=== PATIENT | female | born 1980 | race Caucasian/White ===

== ENCOUNTER 2021-04-30 11:38 | Outpatient (REF) | payer OTHER, SELFPAY | END 2021-04-30 11:39 | disposition home or self-care (01) | LOC: HO.HMGCLDS 11:38 | PROVIDERS: Visit Provider Internal Medicine | DX: Z20.822 Contact with and (suspected) exposure to COVID-19 (principal) | CPT/HCPCS: C9803; U0003; U0005 ==

== ENCOUNTER 2022-04-23 10:17 | Outpatient (REF) | payer OTHER, SELFPAY ==
[2022-04-23 10:57] LABS: COVID-19 Test Negative (Negative)
== END 2022-04-23 10:18 | disposition home or self-care (01) ==
LOC: HO.LAB 10:17
PROVIDERS: Visit Provider Internal Medicine
DX: Z20.822 Contact with and (suspected) exposure to COVID-19 (principal)
CPT/HCPCS: 87635; C9803

== ENCOUNTER 2025-05-25 06:32 | Emergency (ER) | payer OTHER, SELFPAY ==
--- NOTE | ~2025-05-25 | CT_ITS ---
EXAMINATION: CT ABDOMEN AND PELVIS WITHOUT CONTRAST CLINICAL INFORMATION: Right flank pain. COMPARISON: None available. TECHNIQUE: Multidetector volumetric imaging was performed from the superior aspect of the liver through the pubic symphysis. Sagittal and coronal reformatted images were obtained on the technologist's workstation. This CT examination was performed using dose optimization techniques as appropriate, variously including the following: *Automated exposure control *Adjustment of mA and/or kV according to patient size (this includes techniques or standardized protocols for targeted exams where dose is matched to indication/reason for exam; i.e. extremities or head) *Use of iterative reconstruction technique DLP: Final 168 mGy-cm FINDINGS: Inadequate evaluation of the intra-abdominal solid organs and vascular structures due to lack of IV contrast. LUNG BASES: No acute airspace disease or gross pulmonary nodules. LIVER, GALLBLADDER, AND BILIARY TREE: Liver measures 17 cm. Gallbladder is contracted. No pericholecystic fluid collection or gallbladder wall thickening. No intrahepatic or extrahepatic ductal dilatation. PANCREAS: No peripancreatic fluid collections. SPLEEN: 7 cm. ADRENAL GLANDS: No nodular lesions. KIDNEYS AND URETERS: Right kidney: Moderate dilatation of the pelvicalyceal system and the ureter secondary to a cluster of 2.5 mm calculi in the distal right ureter near the vesicoureteral junction. Left kidney: Multiple, less than 2 mm calculi throughout the pelvicalyceal system. No hydronephrosis. No dilatation of the left ureter. BLADDER: Collapsed. GASTROINTESTINAL TRACT: Appendix is normal. Abundant stool throughout the large intestine. Collapsed left hemicolon. No intestinal obstruction pattern. No pneumatosis intestinalis. No ascites. No pneumoperitoneum. ABDOMINAL WALL: Diastases abdominal rectus muscles with protrusion of the intra-abdominal contents. Small fat-containing umbilical hernias. LYMPH NODES: Prominent, nonspecific less than 11 mm mesenteric and retroperitoneal lymph nodes. VASCULAR: No aneurysm, abdominal aorta. No gross calcified plaques. PELVIC VISCERA: Inadequate evaluation. OSSEOUS STRUCTURES: Multilevel thoracolumbar spondylosis without acute fracture or listhesis, mild. No acute fracture in the bony pelvis. No acute fracture or dislocation coxofemoral joints. Bone marrow inhomogeneity in the bony pelvis. CT/CT abdomen pelvis wo IV con IMPRESSION: 2.5 mm cluster of the collecting calculus distal right ureter causing moderate hydroureteronephrosis. Nonobstructing nephrolithiasis, left kidney. Diastases abdominal rectus muscles and small fat-containing umbilical hernia. Concerning calcium metabolic disorders and or osteopenia/ osteoporosis. Fleischner guidelines were followed. Electronically signed by: Fernando Phipps MD 05/25/2025 08:34 AM [facility] DONALDSON
[2025-05-25 06:43] VITALS: BP 126/53; PULSE 69; RESP 20; TEMP 36.5; O2SAT 99; BMI 28.3
--- NOTE | 2025-05-25 06:55 | ED_ITS ---
HPI - Female Genitourinary General Chief complaint: Urogenital-Female Stated complaint: Kidney Stone? Time Seen by Provider: 05/25/25 06:55 Source: patient, RN notes reviewed and old records reviewed Mode of arrival: ambulatory Limitations: no limitations History of Present Illness ED Provider: Lauren HPI Narrative: Patient is a 44 year old female presenting to the emergency department with complaint of 3 weeks of right flank pain, urinary urgency, frequency, oliguria. Has been seen at urgent care, UA reportedly negative. Was referred to [facility] urology, had outpatient renal ultrasound. States this morning pain worsened, had nausea without vomiting. Unsure of hematuria currently, as she just started her menstrual period. MD elicited complaint: dysuria and flank pain Related Data Previous Rx's ?Medication ?Instructions ?Recorded cefuroxime axetil 250 mg tablet 250 mg PO BID #14 tabs 05/25/25 morphine 15 mg immediate release 15 mg PO Q8H PRN maryellen re pain 05/25/25 tablet (scale score 7-10) #6 tabs ondansetron 4 mg disintegrating 4 mg PO Q8H PRN nausea and 05/25/25 tablet vomiting #10 tabs prednisone 20 mg tablet 20 mg PO DAILY #7 tabs 05/25 tamsulosin 0.4 mg capsule 0.4 mg PO DAILY #14 caps 05/09 Allergies Allergy/AdvReac Type Severity Reaction Status Date / Time Sulfa (Sulfonamide Allergy Unknown RASH/NAUSEA Verified 05/25/25 06:45 Antibiotics) (SULFA (SULFONAMIDE ANTIBIOTICS)) Review of Systems 2 Review of Systems: As per HPI Yes all other systems are reviewed and are negative Constitutional: Constitutional: Reports as per HPI [facility] Social History Social History Alcohol intake: current Alcohol intake frequency: holidays/special occasions only Alcohol type: wine Smoked in Last 30 Days: No Use of substances other than those prescribed or required for medical reasons: Yes Substance Use Type: Marijuana Advance Directives: No Advance Directives Information Provided: No Patient : No Physical Exam 2 Vital Signs: Vital Signs: Last Vital Signs Temp 98.1 F 05/25/25 08:58 Pulse 75 05/25/25 08:58 Resp 20 05/25/25 08:58 BP 126/75 05/25/25 08:58 Pulse Ox 98 05/25/25 08:58 O2 Del Method Room Air 05/25/25 08:58 BMI result Body Mass Index 28.3 Vital signs have been reviewed and appear to be correct. Blood pressure normal. Heart rate normal. Respiratory rate normal. Temperature normal. Oxygen saturation normal. Const: General: cooperative, healthy appearing and no acute distress O rientation/consciousness: oriented to person, oriented to place, oriented to time and patient oriented x3 Limitations: no limitations HEENT: Head: Yes normocephalic and Yes atraumatic Ears: external ears normal General nose exam: Normal external nose present Face and sinus: Yes face symmetric Mouth: oropharynx normal and moist mucous membranes Throat: Yes uvula midline Eyes: Pupils: Equal, round and reactive pupils present Neck: Neck: Yes normal visual inspection and Yes supple Resp: Effort & Inspection: normal respiratory effort and able to speak in complete sentences Auscultation: clear to auscultation bilaterally Cardio: Rate: regular rate Rhythm: regular rhythm Heart sounds: S1 normal heart sound present and S2 normal heart sound present GI: Palpation (GI): Soft to palpation and nontender Auscultation: n ormoactive bowel sounds : General: Yes no CVA tenderness Back/Spine/Pelvis: Back: no CVA tenderness Skin: General skin exam: elasticity normal and turgor normal Neuro: General: oriented to person, oriented to place, oriented to time, patient oriented x3, moves all extremities, no focal motor deficits and CN's II- XI intact bilaterally Cranial nerves: Yes Equal, round and reactive pupils present Cognition (Neuro): normal cognition Extrem: General: Yes full ROM, Yes no pedal edema and Yes no calf tenderness Psych: Mental Status: mental status grossly normal Affect: normal affect Thought process: Normal thought process present Medications Administered Discontinued Medications Generic Name Dose Route Start Last Admin Trade Name Freq PRN Reason Stop Dose Admin Lactated Ringer's 1,000 mls @ 999 mls/hr 05/25/25 07:15 05/25/25 09:09 Lr IV 05/25/25 08:15 Infused .Q1H1M VERONICA Infusion Ketorolac Tromethamine 15 mg 05/25/25 07:17 05/25/25 07:54 Ketorolac Tromethamine 15 Mg/Ml Vial IVPUSH 05/25/25 07:18 15 mg ONCE ONE Administration Ondansetron HCl 4 mg 05/25/25 07:09 05/25/25 07:54 Ondansetron Hcl 4 Mg/2 Ml Vial IVPUSH 05/25/25 07:10 4 mg ONCE ONE Administration Medical Decision Making Medical Decision Making [facility] Narrative: Patient is a 44 year old female presenting to the emergency department with complaint of 3 weeks of right flank pain, urinary urgency, frequency, oliguria. On exam patient is awake, A+Ox3, VS WNL, afebrile, normal neurological exam without focal deficits, physical exam findings as above. Given reported symptoms and physical exam findings, initial differential includes but is not limited to UTI/pyelonephritis, obstructing renal calculi, renal colic, hydronephrosis, interstitial cystitis. Labs notable for slight leukcytosis, elevated Tbili. CT abdomen pelvis notable for 2.5 mm cluster of collecting calculus to distal right ureter with moderate hydroureteronephrosis. My interpretation is in agreement with the radiologist's interpretation. UA notable for 1+ leukocytes, 6-10 wbc's, 2+ bacteria, 3+ blood, 6-10 epithelials. Case discussed with urologist, Dr. Deluca, who recommends 1 dose of IV ceftriaxone in the ED prior to discharge, can be discharged home for outpatient management on tamsulosin, antibiotics. Will send prescription for prednisone, a few morphine for severe pain. Patient has a follow up appointment with the [facility] Urology this afternoon, advised patient to keep this appointment and bring her paperwork from today's visit with her. Return precautions discussed at bedside. Patient verbalized understanding of and agreement with plan. Differential Diagnosis Differential Diagnoses: The differential diagnosis associated with the presentation includes as per [facility] Admission/Observation Consideration of admission/observation: Escalation of care including admission/observation considered Patient would have been admitted to the hospital and transferred to appropriate facility had their clinical presentation warranted hospital admission. Consult Healthcare Provider Management of the patient was discussed with: Compressor Mechanic Bus (Dr. Deluca) Lab Data [facility] Lab Attestation statement: I reviewed the patient's lab results. as per [facility] 05/25/25 07:04 05/25/25 07:04 Labs: Lab Results 05/25/25 05/25/25 Range/Units 07:04 09:02 WBC 11.9 H (4.8-10.8) X10*3/uL RBC 4.69 (4.20-5.50) X10*6/uL Hgb 14.0 (12.0-16.0) g/dl Hct 40.8 (37.0-47.0) % MCV 87.0 (80.0-98.0) fL MCH 29.9 (27.0-33.0) pg MCHC 34.3 (31.0-35.0) g/dl RDW 11.9 (11.0-16.0) % Plt Count 341 (160-400) X10*3/uL MPV 9.6 (9.4-12.3) fL Immature Gran % (Auto) 0.3 (0.0-0.4) % Neut % (Auto) 82.5 H (45-73) % Lymph % (Auto) 11.9 L (20-40) % Elmore % (Auto) 3.8 (2-11) % Eos % (Auto) 0.8 (0-4) % Baso % (Auto) 0.7 (0-2) % Lymph # (Auto) 1.4 (1.2-4.9) X10*3/uL Elmore # (Auto) 0.5 (0.1-1.2) X10*3/uL Eos # (Auto) 0.1 (0.0-0.4) X10*3/uL Baso # (Auto) 0.1 (0.0-0.2) X10*3/uL Abs Immat Gran (auto) 0.03 (0.00-0.03) X10*3/uL Absolute Neuts (auto) 9.9 H (2.0-8.3) x10*3/uL Absolute Nucleated RBC 0.000 (0.0-0.012) X10*3/uL Nucleated RBC % (auto) 0.0 (0.0-0.2) /100WBC Sodium 141 (135-145) mmol/L Potassium 3.4 (3.3-5.1) mmol/L Chloride 105 (96-108) mmol/L Carbon Dioxide 28 (22-29) mmol/L Anion Gap 11 L (12-20) BUN 11 (9-16) mg/dL Creatinine 0.83 (0.5-1.4) mg/dL Estim Creat Clear Calc 87.0 Estimated GFR > 60 Random Glucose 136 H (60-115) mg/dL Calcium 9.1 (8.4-10.2) mg/dL Total Bilirubin 1.8 H (0.0-1.0) mg/dL AST 17 (5-31) U/L ALT 15 (0-31) U/L Alkaline Phosphatase 71 (39-117) U/L Total Protein 7.1 (6.5-8.0) g/dL Albumin 4.6 (3.5-5.0) g/dL Beta HCG, Quant < 2 mIU/mL Urine Color Yellow Urine Appearance Cloudy Urine pH 5.5 (5.0-9.0) Ur Specific Dixie 1.025 (1.005-1.025) Urine Protein 30 (1+) H (Neg-Trace) mg/dL Urine Glucose (UA) Negative (Negative) mg/dL Urine Ketones 80 (Negative) mg/dL Urine Blood Large (3+) H (Negative) Urine Nitrite Negative (Negative) Ur Leukocyte Esterase Small (1+) H (Negative) Urine RBC >20 H (0-2) /HPF Urine WBC 6-10 H (0-5) /HPF Ur Squamous Epith Cells 6-10 (0-2) /HPF Urine Bacteria 2+ (None Seen) Hyaline Casts 0-2 (0-2) /LPF Independent Interpretation I performed an independent interpretation of an: CT Scan Interpretation: CT abdomen pelvis notable for 2.5 mm cluster of collecting calculus to distal right ureter with moderate hydroureteronephrosis. Radiology Impression Discussion of test interpretation with radiology: I have reviewed the radiologist's reading. Radiologist Impression: CT/CT abdomen pelvis wo IV con IMPRESSION: 2.5 mm cluster of the collecting calculus distal right ureter causing moderate hydroureteronephrosis. Nonobstructing nephrolithiasis, left kidney. Diastases abdominal rectus muscles and small fat-containing umbilical hernia. Concerning calcium metabolic disorders and or osteopenia/ osteoporosis. External Record Review External record reviewed: Inpatient record, Office record and Outpatient record Prescription Management I considered prescription management with: Pain Medication, Antibiotic and Other Discharge Plan Discharge Clinical Impression: Right distal ureteral calculus, Urinary tract infection Patient Disposition: Home, Self-Care Instructions: Hydronephrosis (ED), Ureteral Stones (ED) Additional Instructions: You were evaluated in the emergency department for flank pain. Your CT scan showed evidence of stones in your right ureter. The stones together are 2.5 mm which may or may not pass on their own. Your are being provided with a urine strainer to use at home, instructions are included in your discharge paperwork. You are being prescribed prednisone to decrease inflammation, tamsulosin to allow the stone to pass more easily, and a few morphine as needed for severe pain. You can also take 600 mg of ibuprofen every 6 hours as needed for pain. You are being prescribed an antibiotic to treat your UTI, complete the full course as prescribed. You are being prescribed ondansetron which you can use every 8 hours as needed for nausea. Keep your previously scheduled appointment with [facility] Urology this afternoon. Return to the emergency department if you develop worsening pain, persistent vomiting, fever 100.4? or greater, inability to urinate, or any other concerning symptoms. CT/CT abdomen pelvis wo IV con IMPRESSION: 2.5 mm cluster of the collecting calculus distal right ureter causing moderate hydroureteronephrosis. Nonobstructing nephrolithiasis, left kidney. Diastases abdominal rectus muscles and small fat-containing umbilical hernia. Concerning calcium metabolic disorders and or osteopenia/ osteoporosis. 05/25/25 09:02 Urine Color w Urine Appearance w Urine pH (5.0-9.0) Ur Specific Dixie (1.005-1.025) Urine Protein (Neg-Trace?mg/dL) Urine Glucose (UA) (Negative?mg/dL) Urine Ketones (Negative?mg/dL) Urine Blood (Negative) Urine Nitrite (Negative) Ur Leukocyte Esterase (Negative) Urine RBC (0-2?/HPF) Urine WBC (0-5?/HPF) Ur Squamous Epith Cells (0-2?/HPF) Urine Bacteria (None Seen) Hyaline Casts (0-2?/LPF) Prescriptions: New cefuroxime axetil 250 mg tablet 250 mg PO BID Qty: 14 0RF prednisone 20 mg tablet 20 mg PO DAILY Qty: 7 0RF tamsulosin 0.4 mg capsule 0.4 mg PO DAILY Qty: 14 0RF morphine 15 mg tablet 15 mg PO Q8H PRN (Reason: severe pain (scale score 7-10)) Qty: 6 0RF Rx Instructions: Partial Fill upon patient request. ondansetron 4 mg tablet,disintegrating 4 mg PO Q8H PRN (Reason: nausea and vomiting) Qty: 10 0RF Referrals: [facility] Urology [Outside] - 1 day Clinical Impression: Urinary tract infection; Right distal ureteral calculus Print Language: Gibraltarian
[2025-05-25 07:10] LABS: MANUAL DIFF FLAG NO
[2025-05-25 07:11] LABS: Hematocrit 40.8 % (37.0-47.0); Hemoglobin 14.0 g/dl (12.0-16.0); Imm Gran Abs Auto 0.03 X10*3/uL (0.00-0.03); Imm Gran Pct Auto 0.3 % (0.0-0.4); Lymphocytes Absolute Auto 1.4 X10*3/uL (1.2-4.9); Mean Corpuscular HGB Conc 34.3 g/dl (31.0-35.0); Mean Corpuscular Hemoglobin 29.9 pg (27.0-33.0); Mean Corpuscular Volume 87.0 fL (80.0-98.0); NRBC Abs Auto 0.000 X10*3/uL (0.0-0.012); NRBC Pct Auto 0.0 /100WBC (0.0-0.2); Platelet Count 341 X10*3/uL (160-400); Red Blood Count 4.69 X10*6/uL (4.20-5.50); White Blood Count 11.9 X10*3/uL (4.8-10.8)
[2025-05-25 07:29] LABS: Alanine Aminotransferase 15 U/L (0-31); Albumin Level 4.6 g/dL (3.5-5.0); Alkaline Phosphatase 71 U/L (39-117); Anion Gap 11 (12-20); Aspartate Amino Transferase 17 U/L (5-31); Blood Urea Nitrogen 11 mg/dL (9-16); Calcium 9.1 mg/dL (8.4-10.2); Carbon Dioxide 28 mmol/L (22-29); Chloride 105 mmol/L (96-108); Creatinine Clr Calc Pharmacy 87.0; Estimated Glomerular Filt Rate > 60; Potassium 3.4 mmol/L (3.3-5.1); Sodium 141 mmol/L (135-145); Total Protein 7.1 g/dL (6.5-8.0)
--- OUTSIDE RECORDS SUMMARY | 2025-05-25 07:29 | XMS_ITS | Clinical Summary ---
Author Organization [address] Address [address] [place] [phone] Phone Care Team Providers [facility] President Name Role Phone Kary Burton MD Primary Care Provider Allergies Active Allergy Reactions Criticality Noted Date Comments Ibuprofen 05/16/2024 Sulfa (Sulfonamide Antibiotics) Itching,Nausea And Vomiting High 07/11/2011 Medications ibuprofen (ADVIL,MOTRIN) 600 mg tablet Take 1 tablet (600 mg total) by mouth. 0 Active polyethylene glycol (Golytely) 236-22.74-6.74 -5.86 gram solution Take 4L by mouth once for one dose. May substitue any PEG. Starting at 6PM the night before your procedure drink 1 8oz glasses at your own pace until you complete half of the gallon. Finish 2nd half of the gallon 5 hours before your procedure. 4000 mL 5 Active bisacodyL (DULCOLAX) 5 mg EC tablet Take 2 tablets by mouth right before beginning bowel prep. See instructions provided by the office 2 tablet 5 Active polyethylene glycol (Golytely) 236-22.74-6.74 -5.86 gram solution Take 4L by mouth once for one dose. May substitue any PEG. Starting at 6PM the night before your procedure drink 1 8oz glasses at your own pace until you complete half of the gallon. Finish 2nd half of the gallon 5 hours before your procedure. 4000 mL 5 Active bisacodyL (DULCOLAX) 5 mg EC tablet Take 2 tablets by mouth right before beginning bowel prep. See instructions provided by the office 2 tablet 5 Active Active Problems Problem Noted Date Diagnosed Date Blurry vision 01/19/2024 Left leg pain 01/19/2024 Overweight (BMI 25.0-29.9) 01/19/2024 Kidney stone 07/13/2018 Encounters Date Type Department Care Team Description 05/18/2025 Telephone Adult Medicine [address] [phone] Kary Burton MD from Last 3 Months Surgical History Surgery Date Site/Laterality Comments FOOT SURGERY PROCEDURE: HISTORICAL FOOT SURGERY; COMMENT: toe fracture pinned Medical History Medical History Date Comments Historical Medical DX 07/11/2011 DX:NO ACTI VE MEDICAL PROBLEMS Cervical spondylosis without myelopathy DX:Cervical spondylosis with out myelopathy Back pain DX:Back pain Asthma 11/19/2011 DX:Asthma Family History Medical History Relation Name Comments Hypertension Father Colon polyps Mother Relation Name Status Comments Father Mother Social History Tobacco Use Types Packs/Day Years Used Date Smoking Tobacco: Former Smokeless Tobacco: Never Alcohol Use Standard Drinks/Week Comments Yes 0 (1 standard drink = 0.6 oz pur e alcohol) Comments No Sex and Gender Information Value Date Recorded Sex Assigned at Not on file Legal Sex Female 8:50 AM EST Gender Identity Not on file Sexual Orientation Not on file Obstetrics History Para Term AB IAB SAB Ectopic Multiple Livin g Live Births 3 3 3 3 3 Date Outcome GA Total Labor Labor/2nd/3rd Weight Sex Type Anes PTL Lynne A1 A5 Name Clin Term Vag-S pont Living Term Vag-S pont Living Term Vag-S pont Living Last Filed Vital Signs Vital Sign Reading Time Taken Comments Blood Pressure 128/70 06/22/2024 2:18 PM EST Pulse 64 06/22/2024 2:18 PM EST Temperature - - Respiratory Rate - - Oxygen Saturation - - Inhaled Oxygen Concentration - - Weight 77.1 kg (170 lb) 06/22/2024 2:18 PM EST Height 165.1 cm (5' 5 ) 06/22/2024 2:18 PM EST Body Mass Index 28.29 06/22/2024 2:18 PM EST Plan of Treatment Upcoming Encounters Date Type Department Care Team (Late st Contact Info) Description 12/08/2025 8:00 AM EDT Office Visit Adult Medicine [facility] [address] [place] [phone] Kary Burton MD [address] [facility] [place] [address] Health Maintenance Due Date Last Done Comments Breast Cancer Screening 1978 Colorectal Cancer Screening: Colonoscopy 1978 DTaP,Tdap,and Td Vaccines (1 - Tdap) 1997 Hepatitis B Vaccines (1 of 3 - 19+ 3-dose series) 1997 Social Influencers of Health Screening 05/18/2022 Depression Screening 06/15/2024 01/19/2024 COVID-19 Vaccine (1 - 2024-2 6 season) 2025 Influenza Vaccine (#1) 2025 Cervical Cancer Screening: HPV 06/22/2029 0 06/22/2024, 10/12/2014 RSV Immunization Adult Patients (1 - 1-dose 75+ series) 2053 HIV Screening Completed 06/22/2024, 10/12/2014 Hepatitis C Screening Completed 06/22/2024 , 10/12/2014 HIB Vaccines Aged Out No longer eligi ble based on patient's age to complete this topic HPV Vaccines Aged Out No longer eligi ble based on patient's age to complete this topic Hepatitis A Vaccines Aged Out No long er eligible based on patient's age to complete this topic IPV Vaccines Aged Out No longer eligi ble based on patient's age to complete this topic MMR Vaccines Aged Out No longer eligi ble based on patient's age to complete this topic Meningococcal ACWY Vaccine Aged Out N o longer eligible based on patient's age to complete this topic Meningococcal B Vaccine Aged Out No l onger eligible based on patient's age to complete this topic Pneumococcal Vaccine: Pediatrics (0 to 5 Years) and At-Risk Patients (6 to 49 Years) Aged Out No longer eligible b ased on patient's age to complete this topic RSV Immunization Patients Under 20 months Aged Out No longer eligible b ased on patient's age to complete this topic Varicella Vaccines Aged Out No longer eligible based on patient's age to complete this topic Procedures Procedure Name Priority Date/Time Associated Diagnosis Comments HPV WITH REFLEX GENOTYPE Routine 06/22/2024 4:28 PM EST Encounter for gynecological examination without abnormal finding HEPATITIS C ANTIBODY Routine 06/22/2024 3:13 PM EST Encounter for gynecological examination without abnormal finding HIV 1 GENOTYPE Routine 06/22/2024 3:13 PM EST Encounter for gynecological examination without abnormal finding HM DEPRESSION SCREENING Routine 01/19/2024 from Last 3 Months or Most Recently Relevant to Health Maintenance Results * HPV with reflex genotype (06/22/2024 4:28 PM EST) HPV Negative Negative LAB MICROBIOLOGY METHOD 06/24/2024 2:18 PM EST [facility] Brushing/Spatula Cervix uteri structure / Unknown 06/22/2024 4:28 PM EST 06/24/2024 6:11 AM EST [facility] MOLECULAR DIAGNOSTICS ORDER BONIFACIO Final Result Performing Organization Address [facility]/ZIP Co de Phone Number [facility] [address] [place] [address], * Hepatitis C antibody (06/22/2024 3:13 PM EST) Hepatitis C Antibody Negative Negative LAB CHEMISTRY METHOD 06/22/2024 7:31 PM EST [facility] Blood Venous blood specimen / Unknown Venipuncture / Unknown 06/22/2024 3:13 PM EST 06/22/2024 3:13 PM EST Cecilia Borrero [facility] BLOOD ORDERABLES Final Resu lt [facility]) [facility] [address] [place] [address], [place] [phone] * HIV 1 genotype (06/22/2024 3:13 PM EST) HIV 1 Genotype NOT DETECTED 07/04/19 1:44 AM EST [facility] Comment: We are unable to obtain a Genotype from this sample. The most common reasons for failure to genotype are insufficient viral load, mutations in the viral genome at the assay priming sites, and presence of inhibitory substance in the sample. Please correlate this result with any recent viral load for this patient and resubmit if clinically warranted. A minimum viral load of 400 copies/mL is required for testing. HIV Subtype: NOT DETERMINED Antiretroviral drugs Resistance Mutations Detected Predicted ! ! NRTIs ! ! ZDV (zidovudine or Retrovir) !N/A! ABC (abacavir or Ziagen) !N/A! ddI (didanosine or Videx) !N/A! 3TC (lamivudine or Epivir) !N/A! FTC (emtricitabine or Emtriva) !N/A! d4T (stavudine or Zerit) !N/A! TDF (tenofovir or Viread) !N/A! !___! ! ! NNRTIs ! ! ETR (etravirine or Intelence) !N/A! EFV (efavirenz or Sustiva) !N/A! NVP (nevirapine or Viramune) !N/A! RPV (rilpivirine or Edurant) !N/A! SHAYNA (doravirine or Pifeltro) !N/A! !___! ! ! PIs ! ! FPV (fos-amprenavir or Lexiva) !N/A! IDV (indinavir or Crixivan) !N/A! NFV (nelfinavir or Viracept) !N/A! SQV (saquinavir or Invirase) !N/A! LPV (lopinavir or Kaletra) !N/A! ATV (atazanavir or Reyataz) !N/A! TPV (tipranavir or Aptivus) !N/A! DRV (darunavir or Prezista) !N/A! ! ! !___! PRB = PROBABLE OR EMERGING RESISTANCE OTHER MUTATIONS DETECTED: RT GENE MUTATIONS: N/A SD GENE MUTATIONS: N/A The [employer] Feb 2022 Interpretation Algorithm The method used in this test is RT-PCR and sequencing of the HIV-1 polymerase gene. The phrases resistance predicted and probable or emerging resistance refer to the application of the interpretive rules. The FDA has not reviewed all of the interpretive rules used by the laboratory to predict drug resistance. FDA may not currently recognize some of the HIV gene mutations reported as predictive of drug resistance, but the laboratory considers these mutations to be associated with resistance to anti-viral drugs based on current clinical or scientific studies. The test has been validated pursuant to CLIA regulations and is not considered investigational or for research use only. Treatment decisions should be made in consideration of all relevant clinical and laboratory findings and the prescribing information for the drugs. This test was developed and its analytical performance characteristics have been determined by [employer]. It has not been cleared or approved by FDA. This assay has been validated pursuant to the CLIA regulations and is used for clinical purposes. Test Performed at: [facility] [address] [address] Winston Mann MD, PhD Blood Venous blood specimen / Unknown Venipuncture / Unknown 06/22/2024 3:13 PM EST 06/22/2024 3:13 PM EST Cecilia Borrero [facility] BLOOD ORDERABLES Final Resu lt [facility] [address] [place] [address] * Depression Screening (01/19/2024) [facility] Depression Screening abstracted Historical Provider HEALTH MAINTENANCE Final Result from Last 3 Months or Most Recently Relevant to Health Maintenance Insurance [facility] [employer] Care Teams Campus President Relationship Specialty Start Date End Date Kary Burton MD [address] [place] [address] PCP - General 8/5/24
--- OUTSIDE RECORDS SUMMARY | 2025-05-25 07:29 | XMS_ITS ---
Author Name [facility] Organization Unknown Care Team Organization Name Specialty Phone Email Start Date End Da [facility] 01/17/2024 [facility] Yisel Cronin Primary Care 04/22/2022 4
[2025-05-25] MEDS: Lactated Ringers 1,000 ML 999 ML IV (07:54)
[2025-05-25 07:56] VITALS: BP 126/53; PULSE 69; RESP 20; TEMP 36.5; O2SAT 99
--- NOTE | 2025-05-25 08:10 | PC.NURSE ---
Patient presents to Ed c/o right flank and ABD pain rated 10/10 with associated n/v Patient has hx of kidney stones Patient reports difficulty urinating Unable to produce urine sample at this time Bladder scanned for 39ml IV 20 G LAC currently LR Provider in to see patient Plan of care on going
[2025-05-25 08:58] VITALS: BP 126/75; PULSE 75; RESP 20; TEMP 36.7; O2SAT 98
[2025-05-25 09:09] LABS: Appearance Urine Cloudy; Glucose Urine UA Negative (Negative); PH 5.5 (5.0-9.0); Specific Gravity - Urine 1.025 (1.005-1.025); UMIC TRIGGER UACC YES
[2025-05-25 09:14] LABS: UACC Culture Trigger YES
[2025-05-25 10:16] VITALS: BP 124/64; PULSE 78; RESP 14; TEMP 36.6; O2SAT 99
--- NOTE | 2025-06-04 11:01 | PC.NURSE ---
*Late entry* Patient discharged from ED cefTRIAXone sodium 1 GM?infused prior to departure
== END 2025-05-25 10:20 | disposition home or self-care (01) ==
PROVIDERS: Registered Nurse Emergency; Emergency Provider Emergency Medicine; PCP Internal Medicine
DX: N20.1 Calculus of ureter (principal); N39.0 Urinary tract infection, site not specified; R11.0 Nausea; Z79.899 Other long term (current) drug therapy
CPT/HCPCS: 36415; 74176; 80053; 81001; 84702; 85025; 87086; 96361; 96374; 96375; 99284; 99285; J0696; J1885; J2405; J7120

== ENCOUNTER → 2025-05-25 07:26 | Outpatient (BNV) | payer OTHER, SELFPAY | PROVIDERS: Emergency Provider Emergency Medicine; PCP Internal Medicine; Visit Provider Radiology Diagnostic Radiology | DX: N13.2 Hydronephrosis with renal and ureteral calculous obstruction (principal); K42.9 Umbilical hernia without obstruction or gangrene | CPT/HCPCS: 74176 ==